=== PATIENT | male | born 1970 | race American Indian/Alaskan Native ===

== ENCOUNTER 2017-06-03 09:20 | Emergency (ER) | payer OTHER, MEDICAID ==
[2017-06-03 09:20] VITALS: BMI 30.4
[2017-06-03 09:34] VITALS: BP 127/73; PULSE 93; RESP 14; TEMP 97.4; O2SAT 99
--- NOTE | 2017-06-03 09:45 | C.PDOC ---
History Of Present Illness 46 y/o M p/w back pain x 10 days. Pain is L lower back, nonradiating, sharp, worse with movement, constant, gradually worsening. Patient states he had a similar pain earlier this year which resolved on its own. He denies fever, urinary retention, urinary incontinence, numbness, motor weakness, hematuria, dysuria, injury/trauma. Patient has been taking tramadol for his pain, which he has prescribed from his PMD for his chronic leg pains. He comes to the ED requesting an MRI because he wants to find out what is causing his pain and is states that he is not interested in pain medication. Time Seen by Provider: 06/03/17 09:24 Chief Complaint (Nursing): Back Pain Past Medical History Vital Signs: Last Vital Signs Temp 97.4 F L 06/03/17 09:23 Pulse 93 H 06/03/17 09:23 Resp 14 06/03/17 09:23 BP 127/73 06/03/17 09:23 Pulse Ox 99 06/03/17 09:23 - Medical History PMH: Hypothyroidism Family History: States: Unknown Family Hx - Social History Hx Alcohol Use: Yes Hx Substance Use: Yes (marijuana) - Immunization History Hx Tetanus Toxoid Vaccination: No Hx Influenza Vaccination: No Hx Pneumococcal Vaccination: No Review Of Systems Except As Marked, All Systems Reviewed And Found Negative. Constitutional: Positive for: Fever Gastrointestinal: Negative for: Vomiting Physical Exam - Physical Exam Appears: No Acute Distress Skin: Normal Color, No Rash Head: Atraumatic, Normacephalic Oral Mucosa: Moist Respiratory: No Accessory Muscle Use Back: No Vertebral Tenderness, Paraspinal Tenderness (L) Neurological/Psych: Normal Speech, Normal Cognition Gait: Steady ED Course And Treatment O2 Sat by Pulse Oximetry: 99 Disposition - Disposition Disposition: HOME/ ROUTINE Disposition Time: 09:48 Condition: STABLE Additional Instructions: Follow up with your primary doctor for your back pain. In the mean time, attempt to avoid injury, take your prescribed medications. Return to the ED immediately for any urinary changes, motor weakness of the legs, you can't feel your legs, or you have a bowel movement on yourself. Prescriptions: Methocarbamol [Robaxin-750] 1 tab PO Q8H #12 tablet Instructions: Back Pain (ED) Forms: [employer] (Korean) - Clinical Impression Clinical Impression: Low back pain
== END 2017-06-03 09:57 | disposition home or self-care (01) ==
LOC: C.ER 09:20
DX: M54.5 Low back pain (principal)
CPT/HCPCS: 96372; 99283; J1885

== ENCOUNTER 2018-06-06 19:03 | Observation (INO) | payer MEDICAID, OTHER ==
[2018-06-06 19:03] VITALS: BMI 30.4
--- NOTE | 2018-06-06 19:25 | C.PDOC ---
History Of Present Illness 47 year old male with PMHx of hypothyroidism presents to the ED c/o sharp left sided chest pain that started yesterday. Patient reports pain is across left side of the chest associated with subjective dyspnea. Patient reports having right inguinal surgery few days ago. Patient denies fever, chills, palpitations , SOB, headache, weakness, numbness. Time Seen by Provider: 06/06/18 19:13 Chief Complaint (Nursing): Chest Pain History Per: Patient History/Exam Limitations: no limitations Onset/Duration Of Symptoms: Days Current Symptoms Are (Timing): Still Present Quality: Sharp Associated Symptoms: Dyspnea (subjective) Alleviating Factors: None Recent travel outside of the [place]: No Additional History Per: Patient Past Medical History Reviewed: Historical Data, Nursing Documentation, Vital Signs Vital Signs: Last Vital Signs Temp 98.7 F 06/06/18 23:03 Pulse 95 H 06/06/18 23:46 Resp 18 06/06/18 23:46 BP 127/89 06/06/18 23:03 Pulse Ox 98 06/07/18 02:38 - Medical History PMH: Hypothyroidism Other Surgeries: right inguinal surgery Family History: States: Unknown Family Hx - Social History Hx Alcohol Use: Yes Hx Substance Use: Yes (marijuana) - Immunization History Hx Tetanus Toxoid Vaccination: No Hx Influenza Vaccination: No Hx Pneumococcal Vaccination: No Review Of Systems Except As Marked, All Systems Reviewed And Found Negative. Cardiovascular: Positive for: Chest Pain Respiratory: Positive for: Other (Subjective dyspnea) Physical Exam - Physical Exam Appears: Non-toxic, No Acute Distress Skin: Normal Color, Warm, Dry Head: Atraumatic, Normacephalic Eye(s): bilateral: Normal Inspection Neck: Normal ROM, Supple Chest: Symmetrical Cardiovascular: Rhythm Regular Respiratory: Normal Breath Sounds, No Rales, No Rhonchi, No Wheezing Gastrointestinal/Abdominal: Soft, No Tenderness, No Guarding, No Rebound Male Genital: Inguinal Swelling (right inguinal around incision area. Clean, intact, healing incision right inguinal area) Extremity: Normal ROM, No Tenderness, No Swelling Neurological/Psych: Oriented x3, Normal Speech Gait: Steady ED Course And Treatment - Laboratory Results Result Diagrams: 06/06/18 19:39 06/06/18 19:39 ECG: Interpreted By Me, Viewed By Me ECG Rhythm: Sinus Tachycardia Interpretation Of ECG: NO ST/T wave changes Rate From EC (BPM) O2 Sat by Pulse Oximetry: 98 (ON RA) Pulse Ox Interpretation: Normal - Radiology CXR: Interpreted by Me, Viewed By Me CXR Interpretation: Yes: No Acute Disease. No: Infiltrates Medical Decision Making Medical Decision Making: Plan: * EKG * Labs * CXR * Aspirin 325 mg PO Disposition - Disposition Disposition: HOSPITALIZED Disposition Time: 02:00 Condition: GOOD - Clinical Impression Clinical Impression: Chest pain - Scribe Statement The provider has reviewed the documentation as recorded by the Scribe Malcom Pena All medical record entries made by the Scribe were at my direction and personally dictated by me. I have reviewed the chart and agree that the record accurately reflects my personal performance of the history, physical exam, medical decision making, and the department course for this patient. I have also personally directed, reviewed, and agree with the discharge instructions and disposition. Decision To Admit - Pt Status Changed To: Hospital Disposition Of: Observation - . Bed Request Type: Telemetry Admitting Physician: Kun Crow Patient Diagnosis: Chest pain
[2018-06-06 19:43] LABS: BASO % 0.5 % (0.0-2.0); EOS # 0.4 K/uL (0.0-0.7); EOS % 4.1 % (0.0-4.0); HEMOGLOBIN 16.7 g/dL (12.0-18.0); LYMPH # 2.8 K/uL (1.0-4.3); LYMPH % 30.4 % (20.0-40.0); MEAN CELL VOLUME 97.9 fL (80.0-94.0); MEAN CORPUSCULAR HEMOGLOBIN 34.4 pg (27.0-31.0); MEAN CORPUSCULAR HGB CONC 35.1 g/dL (33.0-37.0); MEAN PLATELET VOLUME 7.5 fL (7.2-11.7); MONO # 1.1 K/uL (0.0-0.8); MONO % 11.6 % (0.0-10.0); NEUT # 4.9 K/uL (1.8-7.0); NEUT % 53.4 % (50.0-75.0); RBC 4.85 Mil/uL (4.40-5.90); RED CELL DISTRIBUTION WIDTH 12.5 % (11.5-14.5); WHITE BLOOD COUNT 9.2 K/uL (4.8-10.8)
[2018-06-06 19:51] LABS: PARTIAL THROMBOPLASTIN TIME 30 SECONDS (21-34)
[2018-06-06 20:00] LABS: D DIMER < 200 ng/mlDDU (0-243)
[2018-06-06 20:03] LABS: ALB/GLOB RATIO 1.4 (1.0-2.1); ALT/SGPT 75 U/L (21-72); AST/SGOT 55 U/L (17-59); BLOOD UREA NITROGEN 17 mg/dL (9-20); CALCIUM 9.5 mg/dl (8.6-10.4); GFR NON-AFRICAN AMERICAN > 60
--- NOTE | 2018-06-06 21:44 | CP.PCM.HP ---
History of Present Illness - History of Present Illness History of Present Illness: 47-year-old male with PMH of hypothyroidism presents to ED with complaints of sharp left-sided chest pain since yesterday. Pain is associated with dyspnea. Reports of having right inguinal surgery a few days ago. Denies fever, chills, palpitation, headache, weakness, numbness, nausea, vomiting. Present on Admission - Present on Admission Any Indicators Present on Admission: No Past Patient History - Past Social History Smoking Status: Current Some Days Smoker - ENDOCRINE/METABOLIC Hx Hypothyroidism: Yes - MUSCULOSKELETAL/RHEUMATOLOGICAL Hx Musculoskeletal Disorders: Yes Hx Back Pain: Yes (scoliosis) - PSYCHIATRIC Hx Substance Use: Yes (marijuana) - SURGICAL HISTORY Hx Surgeries: Yes Hx Musculoskeletal Surgery: Yes (leg with screws/jordy) Meds Allergies/Adverse Reactions: Allergies Allergy/AdvReac Type Severity Reaction Status Date / Time No Known Allergies Allergy Verified 06/03/17 09:28 Results - Vital Signs Recent Vital Signs: Last Vital Signs Temp 98.4 F 06/06/18 19:08 Pulse 101 H 06/06/18 19:08 Resp 16 06/06/18 19:08 BP 140/95 H 06/06/18 19:08 Pulse Ox 98 06/06/18 19:39 - Labs Result Diagrams: 06/06/18 19:39 06/06/18 19:39 Labs: Laboratory Results - last 24 hr 06/06/18 06/06/18 06/06/18 19:39 19:39 19:39 WBC 9.2 RBC 4.85 Hgb 16.7 Hct 47.5 MCV 97.9 H MCH 34.4 H MCHC 35.1 RDW 12.5 Plt Count 304 MPV 7.5 Neut % (Auto) 53.4 Lymph % (Auto) 30.4 [place] % (Auto) 11.6 H Eos % (Auto) 4.1 H Baso % (Auto) 0.5 Neut # (Auto) 4.9 Lymph # (Auto) 2.8 [place] # (Auto) 1.1 H Eos # (Auto) 0.4 Baso # (Auto) 0.0 PT 11.0 INR 1.0 APTT 30 D-Dimer, Quantitative < 200 Sodium 135 Potassium 4.0 Chloride 100 Carbon Dioxide 22 Anion Gap 17 BUN 17 Creatinine 1.1 Est GFR ( Amer) > 60 Est GFR (Non-Af Amer) > 60 Random Glucose 140 H Calcium 9.5 Total Bilirubin 0.7 AST 55 ALT 75 H Alkaline Phosphatase 76 Troponin I < 0.0120 NT-Pro-B Natriuret Pep 60.0 Total Protein 6.9 Albumin 4.0 Globulin 2.9 Albumin/Globulin Ratio 1.4
[2018-06-06] MEDS: Piperacillin/Tazobact 3.375 GM in Sodium Chloride 100 ML IVPB SCH (22:09)
[2018-06-07] MEDS: Piperacillin/Tazobact 3.375 GM in Sodium Chloride 100 ML IVPB SCH ×3 (05:37→21:00)
[2018-06-07 07:00] LABS: CK-MB 2.51 ng/mL (0.0-3.38)
--- NOTE | 2018-06-07 09:13 | CP.PCM.CON ---
<Alexandra Gavin - Last Filed: 06/07/18 11:26> History of Present Illness - History of Present Illness History of Present Illness: General surgery consult for Dr. Chasity Gavin PGY2 Pt S & E at bedside 0850 47M w/PSH sig for elective R inguinal hernia repair POD #7 consulted for evaluation of surgical site. Pt admitted to hospital c/o CP x 1 day. Pt reports continued swelling of right inguinal hernia repair incision site, with some pain and discomfort while driving/sitting. Dressing removed 3 days prior to evaluation with dried drainage. No continued drainage noted. Admits to diaphoresis, dizziness, palpitations, SOB. Denies F & C, N & V, ab pain, diarrhea, constipation or hematochezia. On admission- afebrile, no leukocytosis PMH: hypothyroidism PSH: right inguinal hernia repair, 1 week ago w/Dr. Sweet [place] [facility] B/L foot repair, appendectomy (1991) All: NKDA SH: tobacco use 1/2ppd x 5 yrs; ETOH on weekends- 20-30 shots liquor; Denies illicit drug use FH: non-contributory Review of Systems - Review of Systems All systems: reviewed and no additional remarkable complaints except - Constitutional Constitutional: absent: Chills, Fever - Cardiovascular Cardiovascular: Chest Pain - Gastrointestinal Gastrointestinal: absent: Abdominal Pain, Change in Stool Character, Constipation, Diarrhea, Nausea, Vomiting - Genitourinary Genitourinary: absent: Dysuria, Urinary Frequency - Musculoskeletal Musculoskeletal: Back Pain (chronic) - Integumentary Integumentary: absent: Rash - Psychiatric Psychiatric: absent: Change in Appetite Past Patient History - Past Medical History & Family History Past Medical History?: Yes - Past Social History Smoking Status: Heavy Smoker > 10 Cigarettes Daily - ENDOCRINE/METABOLIC Hx Hypothyroidism: Yes - MUSCULOSKELETAL/RHEUMATOLOGICAL Hx Musculoskeletal Disorders: Yes Hx Back Pain: Yes (scoliosis) Hx Falls: No - PSYCHIATRIC Hx Substance Use: Yes (marijuana) - SURGICAL HISTORY Hx Surgeries: Yes Hx Herniorrhaphy: Yes (rt inguinal hernia repair 05/31/18) Hx Musculoskeletal Surgery: Yes (leg with screws/jordy) - ANESTHESIA Hx Anesthesia: Yes Hx Anesthesia Reactions: No Hx Malignant Hyperthermia: No Has any member of the family had a problem w/ anesthesia?: No Meds Allergies/Adverse Reactions: Allergies Allergy/AdvReac Type Severity Reaction Status Date / Time No Known Allergies Allergy Verified 06/03/17 09:28 - Medications Medications: Current Medications Aspirin (Aspirin) 325 mg PO DAILY [facility] Enoxaparin Sodium (Lovenox) 40 mg SC DAILY [facility] Piperacillin Sod/Tazobactam (Sod 3.375 gm/ Sodium Chloride) 100 mls @ 200 mls/ hr IVPB Q8H SHAUNA PRN Reason: Protocol Last Admin: 06/07/18 05:37 Dose: 200 mls/hr Pantoprazole Sodium (Protonix Ec Tab) 40 mg PO DAILY [facility] Zolpidem Tartrate (Ambien) 5 mg PO HS PRN PRN Reason: Insomnia Last Admin: 06/06/18 22:57 Dose: 5 mg Physical Exam - Constitutional Appears: Non-toxic, No Acute Distress - Head Exam Head Exam: ATRAUMATIC, NORMAL INSPECTION, NORMOCEPHALIC - Eye Exam Eye Exam: EOMI, Normal appearance - ENT Exam ENT Exam: Mucous Membranes Moist, Normal Exam - Neck Exam Neck exam: Positive for: Full Rom, Normal Inspection - Respiratory Exam Respiratory Exam: NORMAL BREATHING PATTERN - Cardiovascular Exam Cardiovascular Exam: REGULAR RHYTHM, +S1, +S2 - GI/Abdominal Exam GI & Abdominal Exam: Soft. absent: Distended, Firm, Guarding, Tenderness - Extremities Exam Additional comments: Right groin incision with steri-strips in place, some swelling at inferior aspect, no fluctuance, some induration at margins, no drainage, no erythema - Neurological Exam Neurological exam: Alert, CN II-XII Intact, Oriented x3 - Psychiatric Exam Psychiatric exam: Normal Affect, Normal Mood - Skin Skin Exam: Dry, Intact, Normal Color, Warm Results - Vital Signs Recent Vital Signs: Last Vital Signs Temp 97.6 F 06/07/18 06:00 Pulse 77 06/07/18 06:00 Resp 21 06/07/18 06:00 BP 107/67 06/07/18 06:00 Pulse Ox 96 06/07/18 06:00 - Labs Result Diagrams: 06/06/18 19:39 06/06/18 19:39 Labs: Laboratory Results - last 24 hr 06/06/18 06/06/18 06/06/18 19:39 19:39 19:39 WBC 9.2 RBC 4.85 Hgb 16.7 Hct 47.5 MCV 97.9 H MCH 34.4 H MCHC 35.1 RDW 12.5 Plt Count 304 MPV 7.5 Neut % (Auto) 53.4 Lymph % (Auto) 30.4 [place] % (Auto) 11.6 H Eos % (Auto) 4.1 H Baso % (Auto) 0.5 Neut # (Auto) 4.9 Lymph # (Auto) 2.8 [place] # (Auto) 1.1 H Eos # (Auto) 0.4 Baso # (Auto) 0.0 PT 11.0 INR 1.0 APTT 30 D-Dimer, Quantitative < 200 Sodium 135 Potassium 4.0 Chloride 100 Carbon Dioxide 22 Anion Gap 17 BUN 17 Creatinine 1.1 Est GFR ( Amer) > 60 Est GFR (Non-Af Amer) > 60 Random Glucose 140 H Calcium 9.5 Total Bilirubin 0.7 AST 55 ALT 75 H Alkaline Phosphatase 76 Total Creatine Kinase CK-MB (Mass) Troponin I < 0.0120 NT-Pro-B Natriuret Pep 60.0 Total Protein 6.9 Albumin 4.0 Globulin 2.9 Albumin/Globulin Ratio 1.4 04/18 06:08 WBC RBC Hgb Hct MCV MCH MCHC RDW Plt Count MPV Neut % (Auto) Lymph % (Auto) [place] % (Auto) Eos % (Auto) Baso % (Auto) Neut # (Auto) Lymph # (Auto) [place] # (Auto) Eos # (Auto) Baso # (Auto) PT INR APTT D-Dimer, Quantitative Sodium Potassium Chloride Carbon Dioxide Anion Gap BUN Creatinine Est GFR ( Amer) Est GFR (Non-Af Amer) Random Glucose Calcium Total Bilirubin AST ALT Alkaline Phosphatase Total Creatine Kinase 357 H CK-MB (Mass) 2.51 Troponin I < 0.0120 NT-Pro-B Natriuret Pep Total Protein Albumin Globulin Albumin/Globulin Ratio Assessment & Plan - Assessment and Plan (Free Text) Assessment: 47M w/PSH sig for elective R inguinal hernia repair POD#7 consulted for surgical site evaluation- no abnormal findings Mild swelling at incisional site, tender on palpation, no erythema or discharge Plan: Pt currently without signs of surgical site infection No surgical intervention at this time. To follow up with [facility] [place] in 1-2 weeks Please re-consult as necessary Further mgmt as per primary team Will DW Dr. Chasity Gavin, PGY-2 - Date & Time Date: 06/07/18 Time: 09:16 <Bjorn Gaspar - Last Filed: 06/12/18 10:41> Results - Vital Signs Recent Vital Signs: Last Vital Signs Temp 98.1 F 06/08/18 08:00 Pulse 71 06/08/18 10:00 Resp 13 06/08/18 08:00 BP 140/91 H 06/08/18 08:00 Pulse Ox 99 06/08/18 08:00 - Labs Result Diagrams: 06/06/18 19:39 06/06/18 19:39 Attending/Attestation - Attestation I have personally seen and examined this patient.: Yes I have fully participated in the care of the patient.: Yes I have reviewed all pertinent clinical information: Yes Notes (Text): Pt was seen and examined at bedside Agree with above note and assessment Pt with chest pain and SOB Pt is s/p Open inguinal hernia repair by 1 week ago c/o mild incisional pain Abdomen: Soft, ND, NT, wound is C/D/I. Labs and radiology reviewed Ass: Chest pain due to musculoskeletal origin Plan : Wound is C/D/I No need for surgical intervention at present c.w current mx f.u with PMD and Dr. Sweet Plan d.w pt in detail Risk and benefit explained in detail.
[2018-06-07] MEDS: Pantoprazole 40 mg EC Tab PO SCH (09:50)
[2018-06-07] MEDS: Enoxaparin 40 mg Syringe SC SCH (09:50)
--- NOTE | 2018-06-07 10:21 | RAD ---
Date of service: 06/06/2018 HISTORY: chest pain COMPARISON: Chest radiographs 10/11/2016. TECHNIQUE: Chest PA and lateral FINDINGS: LUNGS: No active pulmonary disease. PLEURA: No significant pleural effusion identified. No pneumothorax apparent. CARDIOVASCULAR: Normal. OSSEOUS STRUCTURES: No significant abnormalities. VISUALIZED UPPER ABDOMEN: Normal. OTHER FINDINGS: None. IMPRESSION: No interval acute cardiopulmonary disease appreciated.
[2018-06-07 12:38] LABS: CK-MB 2.02 ng/mL (0.0-3.38)
--- NOTE | 2018-06-07 19:30 | CP.PCM.PN ---
Subjective - Date & Time of Evaluation Date of Evaluation: 06/07/18 Time of Evaluation: 15:00 - Subjective Subjective: clinically same Objective - Vital Signs/Intake and Output Vital Signs (last 24 hours): Temp Pulse Resp BP Pulse Ox 98.0 F 72 16 129/90 98 06/07/18 15:00 06/07/18 18:00 06/07/18 15:00 06/07/18 15:00 06/07/18 15:00 Intake and Output: 06/07/18 06/08/18 18:59 06:59 Intake Total 500 Output Total 400 Balance 100 - Medications Medications: Current Medications Aspirin (Aspirin) 325 mg PO DAILY [facility] Last Admin: 06/07/18 09:50 Dose: 325 mg Enoxaparin Sodium (Lovenox) 40 mg SC DAILY [facility] Last Admin: 06/07/18 09:50 Dose: 40 mg Piperacillin Sod/Tazobactam (Sod 3.375 gm/ Sodium Chloride) 100 mls @ 200 mls/ hr IVPB Q8H SHAUNA PRN Reason: Protocol Last Admin: 06/07/18 14:08 Dose: 200 mls/hr Pantoprazole Sodium (Protonix Ec Tab) 40 mg PO DAILY [facility] Last Admin: 06/07/18 09:50 Dose: 40 mg Zolpidem Tartrate (Ambien) 5 mg PO HS PRN PRN Reason: Insomnia Last Admin: 06/06/18 22:57 Dose: 5 mg - Labs Labs: 06/06/18 19:39 06/06/18 19:39 PT 11.0 SECONDS (9.7-12.2) 06/06/18 19:39 INR 1.0 06/06/18 19:39 APTT 30 SECONDS (21-34) 06/06/18 19:39 - Constitutional Appears: Well - Head Exam Head Exam: ATRAUMATIC, NORMAL INSPECTION, NORMOCEPHALIC - Eye Exam Eye Exam: EOMI, Normal appearance, PERRL Pupil Exam: NORMAL ACCOMODATION, PERRL - ENT Exam ENT Exam: Mucous Membranes Moist, Normal Exam - Neck Exam Neck Exam: Full ROM, Normal Inspection. absent: Lymphadenopathy - Respiratory Exam Respiratory Exam: Decreased Breath Sounds - Cardiovascular Exam Cardiovascular Exam: REGULAR RHYTHM, +S1, +S2 - GI/Abdominal Exam GI & Abdominal Exam: Soft, Diminished Bowel Sounds - Rectal Exam Rectal Exam: Deferred
[2018-06-08 08:35] VITALS: BP 140/91; RESP 13; TEMP 98.1; O2SAT 99
--- NOTE | 2018-06-08 09:14 | CARD ---
APPROVED REPORT Date of service: 06/06/2018 EKG Measurement Heart [id number] <Conclusion> Sinus tachycardia Otherwise normal ECG
[2018-06-08] MEDS: Pantoprazole 40 mg EC Tab PO SCH (09:54)
[2018-06-08] MEDS: Enoxaparin 40 mg Syringe SC SCH (09:54)
--- NOTE | 2018-06-08 10:06 | CP.PCM.CON ---
History of Present Illness - History of Present Illness History of Present Illness: CC: Chest pain HPI: 47 year old man with HTN s/p right inguinal lipoma removal one week ago. He is reporting 2 week onset of chest pain. Pain is located in the left chest. Pain is sharp in character. Pain is occuring in random context. Pain is modified with increased breathing. Review of Systems - Review of Systems All systems: reviewed and no additional remarkable complaints except Past Patient History - Past Medical History & Family History Past Medical History?: Yes Past Family History: Reviewed and not pertinent - Past Social History Smoking Status: Heavy Smoker > 10 Cigarettes Daily - ENDOCRINE/METABOLIC Hx Hypothyroidism: Yes - MUSCULOSKELETAL/RHEUMATOLOGICAL Hx Musculoskeletal Disorders: Yes Hx Back Pain: Yes (scoliosis) Hx Falls: No - PSYCHIATRIC Hx Substance Use: Yes (marijuana) - SURGICAL HISTORY Hx Surgeries: Yes Hx Herniorrhaphy: Yes (rt inguinal hernia repair 05/31/18) Hx Musculoskeletal Surgery: Yes (leg with screws/jordy) - ANESTHESIA Hx Anesthesia: Yes Hx Anesthesia Reactions: No Hx Malignant Hyperthermia: No Has any member of the family had a problem w/ anesthesia?: No Meds Allergies/Adverse Reactions: Allergies Allergy/AdvReac Type Severity Reaction Status Date / Time No Known Allergies Allergy Verified 06/03/17 09:28 - Medications Medications: Current Medications Aspirin (Aspirin) 325 mg PO DAILY [facility] Last Admin: 06/08/18 09:54 Dose: 325 mg Enoxaparin Sodium (Lovenox) 40 mg SC DAILY [facility] Last Admin: 06/08/18 09:54 Dose: 40 mg Pantoprazole Sodium (Protonix Ec Tab) 40 mg PO DAILY [facility] Last Admin: 06/08/18 09:54 Dose: 40 mg Zolpidem Tartrate (Ambien) 5 mg PO HS PRN PRN Reason: Insomnia Last Admin: 06/07/18 23:53 Dose: 5 mg Physical Exam - Constitutional Appears: Well, Non-toxic - Head Exam Head Exam: ATRAUMATIC, NORMAL INSPECTION - Eye Exam Eye Exam: PERRL. absent: Scleral icterus - ENT Exam ENT Exam: Mucous Membranes Moist, Normal External Ear Exam - Neck Exam Neck exam: Negative for: Lymphadenopathy, Thyromegaly - Respiratory Exam Respiratory Exam: Clear to Auscultation Bilateral, NORMAL BREATHING PATTERN - Cardiovascular Exam Cardiovascular Exam: REGULAR RHYTHM, RRR, +S1, +S2. absent: JVD - GI/Abdominal Exam GI & Abdominal Exam: Normal Bowel Sounds. absent: Organomegaly - Neurological Exam Neurological exam: CN II-XII Intact, Oriented x3 - Psychiatric Exam Psychiatric exam: Normal Affect, Normal Mood Results - Vital Signs Recent Vital Signs: Last Vital Signs Temp 98.1 F 06/08/18 08:00 Pulse 69 06/08/18 08:00 Resp 13 06/08/18 08:00 BP 140/91 H 06/08/18 08:00 Pulse Ox 99 06/08/18 08:00 - Labs Result Diagrams: 06/06/18 19:39 06/06/18 19:39 Labs: Laboratory Results - last 24 hr 06/07/18 12:00 Total Creatine Kinase 325 H CK-MB (Mass) 2.02 Troponin I < 0.0120 - EKG Data EKG Interpreted by: Myself EKG shows normal: Sinus rhythm - Imaging and Cardiology Chest x-ray Status: Image reviewed by me (No infiltrates or effusions) Assessment & Plan - Assessment and Plan (Free Text) Assessment: 47 year old man with atypical chest pain check serial troponin an EKG, if negative for ischemia can be d/c home from cardiac perspective Inguinal lipoma removal stable post op changes COPD encourage patient to quit smoking we discussed this for 10-15 minutes ASHD low risk can lower asprin 81mg po daily If d/c home today then he can follow up in my office in 1-2 weeks to reasses his symptoms. - Date & Time Date: 06/08/18 Time: 10:06
[2018-06-08 10:14] VITALS: PULSE 71
--- NOTE | 2018-06-08 17:18 | CARD ---
APPROVED REPORT Date of service: 06/07/2018 EKG Measurement Heart [id number] <Conclusion> Normal sinus rhythm Normal ECG
--- NOTE | 2018-06-08 17:27 | CP.PCM.PN ---
Subjective - Date & Time of Evaluation Date of Evaluation: 06/08/18 Time of Evaluation: 09:00 - Subjective Subjective: TESTING TECH NOTES patient seen today, chest pain resolved ,denies any sob, palpitations , heada ricco, N/V/ No overnight events reported by RN troponin x 3 - negative Objective - Vital Signs/Intake and Output Vital Signs (last 24 hours): Temp Pulse Resp BP Pulse Ox 98.1 F 71 13 140/91 H 99 06/08/18 08:00 06/08/18 10:00 06/08/18 08:00 06/08/18 08:00 06/08/18 08:00 Intake and Output: 06/08/18 06/08/18 06:59 18:59 Intake Total 600 Output Total 700 Balance -100 - Labs Labs: 06/06/18 19:39 06/06/18 19:39 PT 11.0 SECONDS (9.7-12.2) 06/06/18 19:39 INR 1.0 06/06/18 19:39 APTT 30 SECONDS (21-34) 06/06/18 19:39 Assessment and Plan - Assessment and Plan (Free Text) Assessment: A/P 47 yr old mal e admitted with left side chest pain troponin x 3 - negative ekg- NSR , normal ekg seen by Dr. Mclaughlin , cleared for discharge home today from cardiology stand point an df/u Dr. Xie office in 1 week D /W Dr. arya heart , cleared for discharge home today and f/u with Dr. Jones office in 3-5 days discharge plan discussed with patient who understands and agrees with plan Patient instructed to returns to ED if symptoms returns or anuy other concerning symptoms
== END 2018-06-08 11:41 | disposition home or self-care (01) ==
LOC: C.ER 19:03 → C.9E 20:13 → C.9I 22:21
PROVIDERS: ADMIT Internal Medicine Nephrology; ATTEND Internal Medicine Nephrology
DX: R07.89 Other chest pain (principal); E03.9 Hypothyroidism, unspecified; F17.200 Nicotine dependence, unspecified, uncomplicated; I10 Essential (primary) hypertension; J44.9 Chronic obstructive pulmonary disease, unspecified; K40.90 Unilateral inguinal hernia, without obstruction or gangrene, not specified as recurrent; M41.9 Scoliosis, unspecified; F12.90 Cannabis use, unspecified, uncomplicated
CPT/HCPCS: 71046; 80053; 83880; 84484; 85025; 85378; 85610; 85730; 87040; 87070; 87081; 93005; 96365; 99285; G0378; J1650; J2543; J7050